=== PATIENT | female | born 1980 | race American Indian/Alaskan Native ===

== ENCOUNTER 2020-04-27 03:23 | Inpatient (IN) | payer OTHER ==
[2020-04-27 04:20] LABS: Basophils # (Auto) 0.1 K/mm3 (0.0-0.1); Basophils % (Auto) 0.9 % (0.0-1.8); Eosinophils # (Auto) 0.1 K/mm3 (0.0-0.4); Hematocrit 31.7 % (30.3-42.9); Hemoglobin 10.1 gm/dl (10.1-14.3); Lymphocytes # (Auto) 3.1 K/mm3 (1.2-5.4); Lymphocytes % (Auto) 30.1 % (13.4-35.0); Mean Corpuscular HGB Conc 32 % (30-34); Mean Corpuscular Volume 83 fl (79-97); Monocytes # (Auto) 0.4 K/mm3 (0.0-0.8); Monocytes % (Auto) 4.2 % (0.0-7.3); Platelet Count 324 K/mm3 (140-440); Red Blood Count 3.82 M/mm3 (3.65-5.03); Red Cell Distribution Width 16.6 % (13.2-15.2)
[2020-04-27 04:46] LABS: Alanine Aminotransferase 8 units/L (7-56); Albumin 3.7 g/dL (3.9-5); BUN/Creatinine Ratio 16; Blood Urea Nitrogen 13 mg/dL (7-17); Calcium 8.8 mg/dL (8.4-10.2); Hemolysis Index 14
[2020-04-27] MEDS ORDERED: SODIUM CHLORIDE 0.9% 1000 ML 1,000 ML IV ONE (04:54)
[2020-04-27] MEDS ORDERED: MORPHINE 4 MG/1 ML INJ IV ONE ×3 (05:07→05:50)
[2020-04-27] MEDS ORDERED: ONDANSETRON 4 MG/2 ML INJ IV ONE (05:07)
--- NOTE | 2020-04-27 05:11 | Ultrasound Report ---
ULTRASOUND OBSTETRIC INDICATION / CLINICAL INFORMATION: pelvic pain. TECHNIQUE: Transabdominal and Transvaginal. COMPARISON: None available. FINDINGS: There is a left adnexal ectopic that appears to be in the fallopian tube between the left o vary and uterus. There is a pole with crown-rump length of 0.61 cm and heart rate of 1 23 bpm. There is no free fluid. The uterus appears unremarkable. IMPRESSION: Ectopic in the left adnexal region, likely in the left fallopian tube. No free fluid. Signer Name: Christiano Salas MD Signed: 04/27/2020 5:06 AM Workstation Name: [id number]
--- NOTE | 2020-04-27 05:37 | Emergency Department Report ---
ED Female HPI - General Chief complaint: Abdominal Pain Stated complaint: ABD PAIN Time Seen by Provider: 04/27/20 04:53 Source: patient, EMS Mode of arrival: Wheelchair Limitations: No Limitations - History of Present Illness Initial comments: Chief complaint: Lower abdominal pain pelvic pain HPI: This is a 39-year-old female without significant past medical history who presents with severe lower abdominal pain after intercourse. Sharp 10 out of 10 left pelvic left lower quadrant pain without radiation. Patient estimates that she is approximately 7 weeks . She has yet to establish care. She receives her medical care through [facility]. She arrived via EMS. She recently discovered she likely has scar tissue in the fallopian tube during recent fertility evaluation. She did not require in vitro fertilization. No history of surgeries. No history of abortions or miscarriages. This is patient's fourth . She has had 3 vaginal deliveries. MD Complaint: pelvic pain, other (Left lower abdominal pain pelvic pain) -: Sudden, This morning Severity: severe Severity scale (0 -10): 10 Quality: sharp Consistency: constant Improves with: none Worsens with: intercourse Are you Now?: Yes Associated Symptoms: abdominal pain - Related Data Allergies Allergy/AdvReac Type Severity Reaction Status Date / Time Penicillins Allergy Unknown Verified 04/27/20 03:32 ED Review of Systems ROS: Stated complaint: ABD PAIN Other details as noted in HPI Comment: All other systems reviewed and negative Constitutional: denies: fever, malaise Respiratory: denies: cough, shortness of breath Gastrointestinal: abdominal pain. denies: nausea, vomiting Genitourinary: denies: urgency, dysuria, frequency, hematuria, abnormal menses ED Past Medical Hx - Past Medical History Previous Medical History?: No - Surgical History Past Surgical History?: No ED Physical Exam - General Limitations: No Limitations General appearance: alert, other (Appears uncomfortable nontoxic) - Head Head exam: Present: atraumatic, normocephalic - Eye Eye exam: Present: normal appearance - ENT ENT exam: Present: mucous membranes moist - Neck Neck exam: Present: normal inspection, full ROM - Respiratory Respiratory exam: Present: normal lung sounds bilaterally. Absent: respiratory distress, wheezes, rales, rhonchi - Cardiovascular Cardiovascular Exam: Present: regular rate, normal rhythm, normal heart sounds. Absent: systolic murmur, diastolic murmur, rubs, gallop - GI/Abdominal GI/Abdominal exam: Present: soft, normal bowel sounds. Absent: distended, tenderness, guarding, rebound - Extremities Exam Extremities exam: Present: normal inspection - Neurological Exam Neurological exam: Present: alert, oriented X3 - Psychiatric Psychiatric exam: Present: normal affect, normal mood - Skin Skin exam: Present: warm, dry, intact, normal color. Absent: rash ED Course Vital Signs 04/27/20 04/27/20 04/27/20 03:30 04:14 04:53 Temperature 98.0 F Pulse Rate 93 H 105 H 103 H Respiratory 18 21 23 Rate Blood Pressure 131/105 101/64 O2 Sat by Pulse 98 99 100 Oximetry 04/27/20 05:01 Temperature Pulse Rate 110 H Respiratory 19 Rate Blood Pressure 101/64 O2 Sat by Pulse 100 Oximetry ED Medical Decision Making - Lab Data Result diagrams: 04/27/20 04:09 04/27/20 04:09 Laboratory Results - last 24 hr 04/27/20 04/27/20 04/27/20 04:09 04:09 04:09 WBC 10.2 RBC 3.82 Hgb 10.1 Hct 31.7 MCV 83 MCH 26 L MCHC 32 RDW 16.6 H Plt Count 324 Lymph % (Auto) 30.1 [place] % (Auto) 4.2 Eos % (Auto) 1.0 Baso % (Auto) 0.9 Lymph # (Auto) 3.1 [place] # (Auto) 0.4 Eos # (Auto) 0.1 Baso # (Auto) 0.1 Seg Neutrophils % 63.8 Seg Neutrophils # 6.5 Sodium 138 Potassium 3.5 L Chloride 102.1 Carbon Dioxide 19 L Anion Gap 20 BUN 13 Creatinine 0.8 Estimated GFR > 60 BUN/Creatinine Ratio 16 Glucose 165 H Calcium 8.8 Total Bilirubin < 0.20 AST 12 ALT 8 Alkaline Phosphatase 59 Total Protein 6.7 Albumin 3.7 L Albumin/Globulin Ratio 1.2 Lipase 26 HCG, Quant 86744 H - Radiology Data Radiology results: report reviewed, image reviewed ULTRASOUND OBSTETRIC INDICATION / CLINICAL INFORMATION: pelvic pain. TECHNIQUE: Transabdominal and Transvaginal. COMPARISON: None available. FINDINGS: There is a left adnexal ectopic that appears to be in the fallopian tube between the left ovary and uterus. There is a pole with crown-rump length of 0.61 cm and heart rate of 1 23 bpm. There is no free fluid. The uterus appears unremarkable. IMPRESSION: Ectopic in the left adnexal region, likely in the left fallopian tube. No free fluid. - Medical Decision Making This is a 39-year-old female who is approximately 7 weeks presents with severe left lower quadrant, left pelvic pain. MET upon arrival I ordered transvaginal ultrasound to rule out ectopic . Upon return to the emergency department from radiology suite, electro optics engineer informing that patient had live ectopic. I immediately reviewed the images. I spoke with [facility] predatory animal hunter Dr. Sahu who recommended that patient receives definitive treatment at our facility. I spoke with chemical weigher for Dr. Benjamin. She arranged for communication with Dr. Benjamin. Dr. Benjamin spoke to me personally. He will evaluate the patient [id number] in order to determine best plan of care. He anticipates surgical intervention. Patient required multiple doses of IV analgesia for severe 10 on 10 pain. H&H within normal limits. No free fluid on ultrasound. ABO type ordered. PT PTT ordered in anticipation of surgical intervention. I have informed patient that she is n.p.o. status. IV fluid initiated in the emergency department. Clinical impression: Ectopic Disposition to be determined by predatory animal hunter Dr. Benjamin Critical Care Time: Yes Critical care time in (mins) excluding proc time.: 40 Critical care attestation.: If time is entered above; I have spent that time in minutes in the direct care of this critically ill patient, excluding procedure time. 40 minutes of critical care time excluding procedures were used in the care of the patient. I came immediately to the bedside upon patient's arrival. I obtained history from EMS at the bedside. I discussed treatment plan with the nursing team members. I reviewed electronic record. I kept the family members informed. I discussed treatment options and plan of care with fianc and patient at the bedside. Patient required multiple interventions and reassessments. I spoke with multiple consultants regarding patient's care. ED Disposition Clinical Impression: Ectopic Disposition: DC-09 OP ADMIT IP TO THIS HOSP Is pt being admited?: Yes Does the pt Need Aspirin: No Condition: Stable
[2020-04-27 06:06] LABS: INR 0.93 (0.87-1.13)
[2020-04-27 06:08] LABS: Partial Thromboplastin Time 23.3 Sec. (24.2-36.6)
[2020-04-27] MEDS ORDERED: KETOROLAC 30 MG/1 ML INJ IV PRN (06:55)
[2020-04-27] MEDS ORDERED: KETOROLAC 30 MG/1 ML INJ IM NR (06:56)
--- NOTE | 2020-04-27 06:59 | History and Physical Report ---
History of Present Illness Date of examination: 04/27/20 Chief complaint: Pelvic pain History of present illness: This is a 39-year-old black female para 3-0-0-3 whose last menstrual period was March 08, 2020 presents to emergency room with left lower quadrant pain after intercourse patient denies any vaginal bleeding and work-up in emergency room has shown her to have an unruptured left ectopic . Patient states she discovered positive test approximately 10 days ago. Patient significant other states that they have been undergoing infertility evaluation and had discovered that there was a blockage in the left tube. Patient says the plan was to "have that tube cleaned out" and proceed with intrauterine insemination. Patient states that the pain has improved since receiving pain medicine emergency room. Past History Past Medical History: No medical history Past Surgical History: No surgical history Medications and Allergies Allergies Allergy/AdvReac Type Severity Reaction Status Date / Time Penicillins Allergy Unknown Verified 04/27/20 03:32 Active Meds: Active Medications Ketorolac Tromethamine (Toradol) 30 mg IV Q6H PRN PRN Reason: Pain , Severe (7-10) Stop: 05/02/20 06:54 Ketorolac Tromethamine (Toradol) 30 mg IM ONCE ONE Stop: 04/27/20 06:57 Review of Systems Ears, nose, mouth and throat: deferred Breasts: deferred Cardiovascular: no chest pain Respiratory: no cough, no cough with sputum Gastrointestinal: nausea Genitourinary Female: pelvic pain Rectal: no pain Exam - Constitutional Vitals: Temp Pulse Resp BP Pulse Ox 98.0 F 110 H 19 101/64 100 04/27/20 03:30 04/27/20 05:01 04/27/20 05:01 04/27/20 05:01 04/27/20 05:01 General appearance: Present: mild distress, other (Patient is slightly somnolent from pain medicine but answers questions appropriately) - Respiratory Respiratory effort: normal - Cardiovascular Rhythm: regular - Extremities Extremities: no ischemia - Abdominal General gastrointestinal: Present: soft, tender Localized gastrointestinal: tender: LLQ, guarding: LLQ Female genitourinary: Present: deferred - Rectal Rectal Exam: deferred - Integumentary Integumentary: Present: clear, warm, dry - Psychiatric Psychiatric: appropriate mood/affect Results - Labs CBC & Chem 7: 04/27/20 04:09 04/27/20 04:09 Labs: Abnormal lab results 04/27/20 04/27/20 04/27/20 Range/Units 04:09 04:09 04:09 MCH 26 L (28-32) pg RDW 16.6 H (13.2-15.2) % APTT (24.2-36.6) Sec. Potassium 3.5 L (3.6-5.0) mmol/L Carbon Dioxide 19 L (22-30) mmol/L Glucose 165 H (65-100) mg/dL Albumin 3.7 L (3.9-5) g/dL HCG, Quant 30995 H (0-4) mIU/mL 04/27/20 Range/Units 05:44 MCH (28-32) pg RDW (13.2-15.2) % APTT 23.3 L (24.2-36.6) Sec. Potassium (3.6-5.0) mmol/L Carbon Dioxide (22-30) mmol/L Glucose (65-100) mg/dL Albumin (3.9-5) g/dL HCG, Quant (0-4) mIU/mL Assessment and Plan - Patient Problems (1) Ectopic Current Visit: Yes Status: Acute Qualifiers: Location of ectopic : tubal Intrauterine status: without intrauterine Laterality: left Qualified Code(s): O00.102 - Left tubal without intrauterine Plan to address problem: Diagnoses discussed with the patient and her significant other. Discussed the finding of ultrasound. Discussed the risks of tubal rupture and hemorrhage. Discussed both surgical treatment operative laparoscopy versus methotrexate. With operative laparoscopy discussed and explained the procedure discussed salpingostomy with possible salpingectomy and evaluation of her contralateral tube. Discussed the risks of the surgery including bleeding, infection, possible damage to bowel, bladder or ureter an outpatient nature of the procedure. Also discussed treatment with methotrexate that is a chemotherapy drug including side effects of nausea, vomiting and GI system irritation also the possibility of failure of the methotrexate treatment and possible need for operative intervention. Patient and significant other are concerned about the possibility of losing her left tube and desires to have the least invasive proce dure done due to their plans with their infertility work-up. Therefore desire to attempt treatment with methotrexate. We will admit the patient started [facility] track state treatment will do serial exams to evaluate patient's condition and also to rule out possible rupture. Will perform serial blood counts to monitor. We will have the patient sign permit for surgery if emergent surgery is needed. Answered all questions from both the patient and her significant other and they desire to start with methotrexate.
[2020-04-27] MEDS ORDERED: ACETAMINOPHEN 325 MG TAB PO PRN ×2 (11:00→20:26)
[2020-04-27] MEDS ORDERED: ONDANSETRON 4 MG/2 ML INJ IV PRN ×2 (11:00→16:13)
[2020-04-27] MEDS ORDERED: oxyCODONE /ACETAMINOPHEN 5-325MG TAB PO PRN (12:17)
[2020-04-27] MEDS: D5W/0.45% NACL 1,000 ML IV SCH ×2 (12:48→23:41)
--- NOTE | 2020-04-27 15:27 | Event Note ---
Date: 04/27/20 Provider at bedside due to pt c/o pain and having to have percocet for pain after having the toradol earlier. I d/w pt and s/o that the increase in pain could be an indication of rupture which is why at this time her pain meds are limited to the toradol so that if she is requiring more meds the provider would again suggest removal as stated before. I explained to both that while the pregnacy is no ruptured at this time the risk of rupture is high and that if she does rupture, this would require emergency surgery so as to save her life and p revent her from hemorraging to . I states that the gestational age and the presence of FCA are relative contraindications to using the MTX and that this may also require several treatments for complete resolutions and that close follow is needed until hormone levels are zero. I stressed that usually this is treated via sx if the patient is having significant pain as she is having whether ruptures or not. I also d/w pt that she will need to have removal of the tube should she have surgery as the tube would likely be entirely encompassed with the ectopic. I d/w both that she likely with have scarring and more nonfuction of the tube and if she had again with same tube in place she is at higher risk for repeat ectopic and that the h/o of ectopic even with tube removed also placed her at higher risk for repeat ectopic compared to the a woman who has never had an ectopic . I was then asked to speak to a woman who identified herself as the mother of the s/o and with pt permission discussed her status and plan of care at this time and all of her questions were addressed and answered. I again stressed that the MXT is used to treat ectopic pregnancies with certain criteria and the ectopic she has does not meet some of those criteria and could be considered outside the standard of care. However, she has the autonomy as a patient to refuse surgical treatment. Approximated 15 minutes were spent at the bedside. Close observation for now. Pt still declines surgical treatment. RN made aware of plan of care and to call provider for any changes in pt status.
--- NOTE | 2020-04-27 15:54 | Event Note ---
Date: 04/27/20 Called by RN. Pt now desires surgical treatment of the ectopic. As was explained previously when I was at the bedside the planned procedure would be a salpingectomy and any other indicated procedures. All risk, benefits, and alternatives were discussed both by myselft and Dr. Benjamin(when initial consent was signed at time of admission). OR notified and pt being posted. Advised that pt seems stable at this time but would need to have sx as soon as time and staffing permits.
[2020-04-27] MEDS ORDERED: GENTAMICIN/NS 120MG/100ML 120 MG/100 ML BAG IV SCH (16:00)
[2020-04-27] MEDS ORDERED: GENTAMICIN/NS 80 MG/100 ML 100 ML IV SCH (16:00)
[2020-04-27] MEDS ORDERED: HYDROmorphone 1 MG/1 ML INJ IV PRN (16:13)
[2020-04-27] MEDS ORDERED: propofoL 200 MG/20 ML VIAL IV ONE (16:27)
[2020-04-27] MEDS ORDERED: ROCURONIUM 50 MG/5 ML INJ IV ONE (16:30)
[2020-04-27] MEDS ORDERED: LIDOCAINE MPF (2%) 20 MG/1 ML VIAL 5 ML ONE (16:30)
[2020-04-27] MEDS ORDERED: BUPIVACAINE/PF (0.5%) 5 MG/1 ML 30 ML VIAL INFILTRATI ONE ×2 (16:44→18:10)
[2020-04-27] MEDS ORDERED: SODIUM CHLORIDE 0.9% 1000 ML 1,000 ML ONE ×3 (17:25→19:47)
[2020-04-27] MEDS ORDERED: SODIUM CHLORIDE 0.9% IRR 1,500 ML BOTTLE IR ONE (18:10)
[2020-04-27] MEDS ORDERED: SODIUM CHLORIDE 0.9% IRRIG SOLN 2000 ML IR ONE (18:11)
--- NOTE | 2020-04-27 18:31 | Anesthesia Consultation ---
Anesthesia Consult and Med Hx Date of service: 04/27/20 - Airway Anesthetic Teeth Evaluation: Good ROM Head & Neck: Adequate Mental/Hyoid Distance: Adequate Mallampati Class: Class III Intubation Access Assessment: Possibly Difficult - Pulmonary Exam CTA: Yes - Cardiac Exam Cardiac Exam: RRR - Pre-Operative Health Status ASA Pre-Surgery Classification: ASA2, Emergency Proposed Anesthetic Plan: General - Pulmonary Hx Respiratory Symptoms: No - Cardiovascular System Hx Hypertension: No Hx Heart Attack/AMI: No Hx Percutaneous Transluminal Coronary Angioplasty (PTCA): No - Central Nervous System CVA: No - Endocrine Hx Renal Disease: No Hx Liver Disease: No Hx Insulin Dependent Diabetes: No Hx Non-Insulin Dependent Diabetes: No Hx Thyroid Disease: No - Hematic Hx Anemia: Yes - Other Systems Hx Obesity: Yes (BMI 37) - Additional Comments Anesthesia Medical History Comments: No hx anesthetic complications. Emergent laparoscopy for ectopic . Type and screen current. pRBCs ordered on standby.
--- NOTE | 2020-04-27 18:31 | Anesthesia Day of Surgery ---
Anesthesia Day of Surgery - Day of Surgery Patient Examined: Yes Patient H&P Reviewed: Yes Patient is NPO: Yes
[2020-04-27] MEDS ORDERED: ONDANSETRON 4 MG/2 ML INJ ONE (19:47)
[2020-04-27] MEDS ORDERED: KETOROLAC 30 MG/1 ML INJ ONE (19:47)
[2020-04-27] MEDS ORDERED: NEOSTIGMINE 10MG/10 ML INJ MDV ONE (19:51)
[2020-04-27] MEDS ORDERED: GLYCOPYRROLATE 0.4 MG/2 ML INJ ONE (19:51)
--- NOTE | 2020-04-27 20:24 | Operative Report ---
Operative Report Operative Report: Date of procedure: 04/27/2020 Pre-operative diagnosis: Left ectopic at approximately 6 weeks and 3 days Suspected ruptured ectopic Post-operative diagnosis: Same plus ovarian cyst Procedure name(s): Diagnostic laparoscopy Operative laparoscopy Evacuation of hemoperitoneum Lysis of adhesions Left salpingectomy Left cystectomy Exam and anesthesia Surgeon: Dr. Bunch Welt Maker: Dr. Nivia Zendejas Anesthesia: General endotracheal anesthesia EBL: 1200 mL Urine output: 300 mL of clear urine out at end of procedure Fluids: 2600 mL Findings: Approximately 800 mL of hemoperitoneum noted in the pelvis. Dense adhesions of the left adnexa including the left tube and ovary What appeared to be ruptured from the fimbriated edge of the left fallopian tube What appeared to be normal right fallopian tube with fimbriated edge appearing to be slightly blunted Indications: Patient presented to the emergency room diagnosed with left ectopic with cardiac TV noted at approximately 6 weeks and 3 days. It was discussed with the patient surgical options patient declined at that time and desired to get medical therapy with methotrexate. After undergoing methotrexate treatment patient continued to have abdominal pain that worsened. Again was discussed with the patient surgical options patient now wanted surgical treatment for the ectopic . All risks benefits and alternatives were discussed with the patient. Consents were signed and placed on the chart. Procedure: Patient was taken to the operating room where she was prepped and draped in sterile fashion after she was placed under general endotracheal anesthesia. Legs were placed in Nithin stirrups and patient was in dorsal lithotomy position. Hoyt catheter was placed and patient underwent straight catheterization which approximately 50 cc of urine was removed from the bladder. Sterile speculum was placed inside the vagina. The anterior lip of the cervix was grasped and the uterus was sounded to approximately 8 cm. The cervix was then dilated to allow placement of the humi uterine manipulator. Attention was then turned to the abdomen in which an incision was made above the umbilicus and placement of the 5 mm trocar with direct visualization was done. An 8 mm and 5 mm trocar was then placed in the abdomen under direct visualization after insufflation had been done. Above-stated hemoperitoneum was noted and irrigation and evacuation was done at this time. Attention was turned to the right fallopian tube with above-stated findings. Attention was turned to the right adnexa in which there were adhesions of the left fallopian tube to the left ovary that were lysed as well as adhesions of the left ovary to the posterior portion of the uterus which were lysed. Excellent hemostasis was noted. Attention was turned to the fallopian tube which was elevated cauterized and transected and removed in its entirety. Patient was also noted to have a left ovarian cyst that was also transected after being cauterized and removed. All specimens went to pathology. The abdomen was copiously irrigated. Interceed was placed along the left ovary. Excellent hemostasis was noted. Patient was taken to recovery room awake in stable condition. Patient was given clindamycin prior to the onset of procedure.
[2020-04-27 20:50] LABS: Hematocrit 26.6 % (30.3-42.9); Hemoglobin 8.7 gm/dl (10.1-14.3)
[2020-04-27] MEDS: GENTAMICIN/NS 80 MG/100 ML 100 ML IV SCH (23:45)
[2020-04-28] MEDS: HYDROcodone/ACETAMINOPHEN 5-325 MG TAB PO PRN ×4 (01:02→20:09)
[2020-04-28] MEDS: CLINDAMYCIN 600 MG/50 mL 600 MG/50 ML BAG IV SCH ×2 (01:07→10:31)
--- NOTE | 2020-04-28 08:30 | Post Anesthesia Evaluation ---
- Post Anesthesia Evaluation Patient Participated: Yes Airway Patent: Yes Stable Respiratory Function: Yes Nausea/Vomiting: No Temp > 96.8F: Yes Pain Manageable: Yes Adequeate Hydration: Yes Anesthesia Complications: No Other Comments: Lat entry for anesthetic 04/27/20
[2020-04-28] MEDS: GENTAMICIN/NS 80 MG/100 ML 100 ML IV SCH (08:59)
[2020-04-28 09:58] LABS: Basophils # (Auto) 0.1 K/mm3 (0.0-0.1); Basophils % (Auto) 0.6 % (0.0-1.8); Eosinophils % (Auto) 0.3 % (0.0-4.3); Hematocrit 21.7 % (30.3-42.9); Hemoglobin 7.1 gm/dl (10.1-14.3); Lymphocytes # (Auto) 2.2 K/mm3 (1.2-5.4); Lymphocytes % (Auto) 27.7 % (13.4-35.0); Mean Corpuscular HGB Conc 33 % (30-34); Mean Corpuscular Volume 81 fl (79-97); Monocytes # (Auto) 0.6 K/mm3 (0.0-0.8); Monocytes % (Auto) 7.7 % (0.0-7.3); Platelet Count 229 K/mm3 (140-440); Red Blood Count 2.69 M/mm3 (3.65-5.03); Red Cell Distribution Width 16.6 % (13.2-15.2)
[2020-04-28] MEDS: D5W/0.45% NACL 1,000 ML IV SCH (10:31)
--- NOTE | 2020-04-28 12:59 | Progress Note ---
Assessment and Plan - Patient Problems (1) Hx of unilateral salpingectomy Current Visit: Yes Status: Acute Plan to address problem: -routine post op care -d/c solitario -cont regular diet -anticipate d/c this pm if h/h stable on in the am pending pt progress -pt status updated with provider space controller Dr. Benjamin. (2) Ectopic Current Visit: Yes Status: Acute Qualifiers: Location of ectopic : tubal Intrauterine status: without intrauterine Laterality: left Qualified Code(s): O00.102 - Left tubal without intrauterine (3) Anemia due to acute blood loss Current Visit: Yes Status: Acute Plan to address problem: -monitor closely -serial h/h -d/c home on po iron Subjective - Subjective Date of service: 04/28/20 Principal diagnosis: POD #1 sp LS and Left cystectomy for ruputed ectopic 2) anemia Interval history: Pt doing well tolerating regular diet this am. Advised that we will d/c cath so that she can ambulate. Pt also advised of surgery findings and given copy of pictures. I d/w anemia and precautions were given and she was advised of possible need for transfusion pending findings of serial labs. I d/w that as per her vital signs and current labs she seems to be stable and not bleeding internally. She expressed understanding. I also d/w that the goal would be for her to be d/c home this pm and defined in the am if she remains afebrile and vitals remain stable she. Patient reports: pain well controlled Objective - Vital Signs Latest vital signs: Vital Signs Temp Pulse Resp BP BP Pulse Ox 04/28/20 08:14 98.6 F 96 H 18 96/56 98 04/28/20 04:41 98.6 F 97 H 18 108/60 98 04/28/20 00:19 98.2 F 109 H 20 128/88 98 04/27/20 21:15 99 F 104 H 14 139/79 94 04/27/20 20:50 102 H 20 129/47 100 04/27/20 20:35 9821 F H 101 H 18 121/72 100 04/27/20 20:20 109 H 20 112/66 100 04/27/20 20:15 111 H 16 121/59 100 04/27/20 20:10 112 H 17 115/56 100 04/27/20 20:05 97.7 F 103 H 16 122/46 100 04/27/20 15:05 98.2 F 90 20 115/65 Intake and Output 04/27/20 04/28/20 04/28/20 22:59 06:59 14:59 Intake Total 9116 438 3868 Output Total 1050 1900 Balance 50 -1740 1240 Intake: IV 7653 908 7252 CLEOCIN 600 MG/50 mL 600 50 mg In 50 ml @ 100 mls/hr IV Q8H MARCELINO Rx#:[id number] D5/0.45NS 1,000 ml @ 125 1000 1000 mls/hr IV DIRECT MARCELINO Rx#:[id number] Gentamicin/Ns 80 mg/100 100 ml 100 ml @ 200 mls/hr IV Q8H MARCELINO Rx#:[id number] Oral 0 240 Intake, Free Water 10 Output: Urine 1050 1900 Indwelling Catheter 1900 Void 600 Other: Total, Intake Amount 0 240 Total, Output Amount 600 600 Voiding Method Indwelling Catheter Indwelling Catheter # Voids Void 1 - Exam Cardiovascular: Present: Normal S1, Normal S2 Abdomen: Present: normal appearance, soft. Absent: distention, tenderness, guarding Incision: Present: normal, dry, intact - Labs Labs: Abnormal lab results 04/27/20 04/27/20 04/28/20 Range/Units 21:12 Unknown 08:47 RBC 2.69 L (3.65-5.03) M/mm3 Hgb 8.7 L 7.1 L (10.1-14.3) gm/dl Hct 26.6 L 21.7 L (30.3-42.9) % MCH 26 L (28-32) pg RDW 16.6 H (13.2-15.2) % [place] % (Auto) 7.7 H (0.0-7.3) % POC Glucose 113 H (70-105)
[2020-04-28 16:29] LABS: Hematocrit 23.9 % (30.3-42.9); Hemoglobin 7.7 gm/dl (10.1-14.3)
--- NOTE | 2020-04-28 18:13 | Event Note ---
Date: 04/28/20 Patient seen in the bed eating dinner. Denies any nausea or vomiting. Patient does complain of abdominal pain consistent with postop state. Patient still has Hoyt in place. Patient states she is anxious about moving around since she has had surgery. Discussed hemoglobin and hematocrit results drawn stable since this a.m. Patient denies any orthostatic symptoms. We will remove Hoyt catheter ambulate and evaluate for possible discharge this evening.
[2020-04-28] MEDS ORDERED: PETROLATUM,WHITE 30 GM OINT TP PRN (20:33)
[2020-04-29] MEDS: HYDROcodone/ACETAMINOPHEN 5-325 MG TAB PO PRN ×2 (04:25→08:38)
--- NOTE | 2020-04-29 07:46 | Discharge Summary ---
Providers - Providers Date of Admission: 04/27/20 09:24 Date of discharge: 04/29/20 Attending physician: BREA REGAN [facility] Condition: Good Procedures: Diagnostic laparoscopy Operative laparoscopy Evacuation of hemoperitoneum Lysis of adhesions Left salpingectomy Left cystectomy Exam and anesthesia Hospital course: This is a 39-year-old female who presented to the emergency room on 04/27/2020 with complaint of abdominal pain. She was found to have a left ectopic pregnanc y. Patient declined surgical intervention and admitted for observation and methotrexate therapy. Throughout the day her pain increased requiring increased doses of narcotic medication. After her evaluation with Dr. Bunch, patient then agreed to proceed with surgery. See Dr. Bunch's operative note. Patient's postoperative course was uncomplicated. Her hemoglobin remained stable. She was ambulating well and tolerating solid regular diet. She desires discharge home today. Disposition: TO HOME OR SELFCARE - Discharge Diagnoses (1) Anemia due to acute blood loss Status: Acute (2) Ectopic Status: Acute Qualifiers: Location of ectopic : tubal Intrauterine status: without intrauterine Laterality: left Qualified Code(s): O00.102 - Left tubal without intrauterine (3) Hx of unilateral salpingectomy Status: Acute Core Measure Documentation - Palliative Care Palliative Care/ Comfort Measures: Not Applicable - Core Measures Any of the following diagnoses?: none Exam - Constitutional Vitals: Temp Pulse Resp BP Pulse Ox 98.2 F 98 H 20 103/62 99 04/29/20 00:16 04/29/20 00:16 04/29/20 00:16 04/29/20 00:16 04/29/20 00:16 General appearance: Present: no acute distress - Respiratory Respiratory effort: normal Respiratory: bilateral: CTA - Extremities Extremities: no ischemia, No edema - Abdominal General gastrointestinal: Present: soft, normal bowel sounds - Psychiatric Psychiatric: appropriate mood/affect, intact judgment & insight, memory intact, cooperative Plan Activity: other (No sex. No driving. Ambulate approximately 1 mile on your property daily. Use your incentive spirometer every hour while awake. Void every hour while awake.) Weight Bearing Status: Full Weight Bearing Diet: regular (Eat small meals frequently. Avoid spicy, fatty, high salt content foods. Drink approximately 100 ounces of water a day.) Wound: open to air, keep clean and dry Special Instructions: no heavy lifting (Greater than 25 pound.) Additional Instructions: Call your cardroom hand today to schedule postoperative follow-up if you are not going to follow-up in our office as recommended [facility]Primary Care Provider[facility] - 7 Days TAYLOR BUNCH MD [Staff Physician] - 7 Days Prescriptions: Docusate Sodium [Colace] 100 mg PO BID PRN #60 capsule PRN Reason: Constipation Ferrous Sulfate [Feosol 325 MG tab] 325 mg PO QDAY #60 tablet Ibuprofen [Motrin 800 MG tab] 800 mg PO Q8HR PRN #30 tablet PRN Reason: Pain, Moderate (4-6) oxyCODONE /ACETAMINOPHEN [Percocet 5/325] 1 tab PO Q4HR #30 tab
[2020-04-29] MEDS ORDERED: ACETAMINOPHEN 325 MG TAB PO PRN (07:59)
[2020-04-29 10:46] VITALS: BP 113/66
== END 2020-04-29 11:51 | disposition home or self-care (01) | DRG 818 ==
LOC: ED 03:23 → OB 09:24
PROVIDERS: ADMIT Obstetrics & Gynecology; ATTEND Obstetrics & Gynecology
PROC: 0UB64ZZ Excision of Left Fallopian Tube, Percutaneous Endoscopic Approach (ICD-10-PCS; principal; 2020-04-27)
PROC: 10T24ZZ Resection of Products of Conception, Ectopic, Percutaneous Endoscopic Approach (ICD-10-PCS; 2020-04-27)
PROC: 0UB14ZZ Excision of Left Ovary, Percutaneous Endoscopic Approach (ICD-10-PCS; 2020-04-27)
DX: O00.102 Left tubal pregnancy without intrauterine pregnancy (principal); D62 Acute posthemorrhagic anemia; N83.202 Unspecified ovarian cyst, left side
CPT/HCPCS: 36415; 76801; 76817; 80053; 82962; 83690; 84702; 85014; 85018; 85025; 85610; 85730; 86900; 86901; 88302; 88305; 96372; 96374; 96375; G0378; A4217; A6250; J1170; J1580; J1885; J2270; J2405; J2704; J2710; J7030; J9260

== ENCOUNTER 2021-04-19 18:40 | Emergency (ER) | payer SELFPAY ==
[2021-04-19] MEDS ORDERED: IBUPROFEN 800 MG TAB PO ONE (19:36)
[2021-04-19 20:00] LABS: Hematocrit 37.6 % (30.3-42.9); Hemoglobin 12.6 gm/dl (10.1-14.3); Mean Corpuscular HGB Conc 34 % (30-34); Mean Corpuscular Volume 88 fl (79-97); Platelet Count 259 K/mm3 (140-440); Red Blood Count 4.28 M/mm3 (3.65-5.03); Red Cell Distribution Width 14.3 % (13.2-15.2)
[2021-04-19 20:26] LABS: Alanine Aminotransferase 11 units/L (7-56); Blood Urea Nitrogen 10 mg/dL (7-17); Calcium 8.7 mg/dL (8.4-10.2); Hemolysis Index 6
[2021-04-19 20:27] LABS: BUN/Creatinine Ratio 17
--- NOTE | 2021-04-19 20:36 | XRay Report ---
CHEST 2 VIEWS INDICATION / CLINICAL INFORMATION: chest pain. COMPARISON: None available. FINDINGS: SUPPORT DEVICES: None. HEART / MEDIASTINUM: No significant abnormality. LUNGS / PLEURA: No significant pulmonary or pleural abnormality. No pneumothorax. ADDITIONAL FINDINGS: No significant additional findings. IMPRESSION: 1. No acute findings. Signer Name: Kvng Alvarez DO Signed: 04/19/2021 8:32 PM Workstation Name: [id number]
--- NOTE | 2021-04-19 20:37 | XRay Report ---
CERVICAL SPINE 3 VIEWS INDICATION / CLINICAL INFORMATION: neck pain. COMPARISON: None available. FINDINGS: VERTEBRAE: No acute fracture. No significant malalignment. DISC SPACES / FACET JOINTS:No significant abnormality. PARASPINAL SOFT TISSUES:No significant abnormality. ADDITIONAL FINDINGS: None. Signer Name: Kvng Alvarez DO Signed: 04/19/2021 8:32 PM Workstation Name: [id number]
[2021-04-19] MEDS ORDERED: ONDANSETRON 4 MG/2 ML INJ IV ONE (21:36)
[2021-04-19] MEDS ORDERED: MORPHINE 4 MG/1 ML INJ IV ONE (21:36)
[2021-04-19 21:48] LABS: Total Cells Counted 100
[2021-04-19 21:49] LABS: Platelet Estimate Consistent w Auto; RBC Morphology Normal
--- NOTE | 2021-04-19 21:50 | Emergency Department Report ---
ED Chest Pain HPI - General Chief Complaint: Chest Pain Stated Complaint: CHEST PAIN BACK PAIN 2DAYS Time Seen by Provider: 04/19/21 21:30 Source: patient Mode of arrival: Ambulatory Limitations: No Limitations - History of Present Illness Initial Comments: Patient is 40 years old female stated that she did not have any past medical history. Patient presented to the ER complaining of left sided chest pain. Patient described her pain as sharp 8 out of 10 radiated to mid upper back. Patient stated that pain has been going on for 2 to 3 days. Patient denied any recent injury. Patient denied any shortness of breath. She also denied any fever or chills. No abdominal pain, nausea or vomiting. MD Complaint: chest pain -: Sudden Onset: during rest Pain Location: substernal Pain Radiation: back Severity scale (0 -10): 8 Quality: sharp, dull Consistency: constant - Related Data Previous Rx's Medication Instructions Recorded Last Taken Type Docusate Sodium [Colace] 100 mg PO BID PRN #60 capsule 04/27/20 Unknown Rx Ferrous Sulfate [Feosol 325 MG tab] 325 mg PO QDAY #60 tablet 04/27/20 Unknown Rx Ibuprofen [Motrin 800 MG tab] 800 mg PO Q8HR PRN #30 tablet 04/27/20 Unknown Rx oxyCODONE /ACETAMINOPHEN [Percocet 1 tab PO Q4HR #30 tab 04/27/20 Unknown Rx 5/325] Ondansetron [Zofran Odt] 4 mg PO Q8HR PRN #14 tab.rapdis 04/19/21 Unknown Rx amLODIPine [Norvasc] 5 mg PO DAILY #30 tab 04/19/21 Unknown Rx traMADoL [Ultram] 50 mg PO Q6HR PRN #14 tablet 04/19/21 Unknown Rx Allergies Allergy/AdvReac Type Severity Reaction Status Date / Time Penicillins Allergy Unknown Verified 04/27/20 03:32 Heart Score - HEART Score History: Moderately suspicious EKG: Normal Age: < 45 Risk factors: 1-2 risk factors Troponin: < normal limit HEART Score: 2 - EKG Read Time Time EKG Completed: 19:40 EKG Read Time: 19:45 - Critical Actions Critical Actions: 0-3 pts:0.9-1.7%risk of adverse cardiac event.Candidate for discharge ED Review of Systems ROS: Stated complaint: CHEST PAIN BACK PAIN 2DAYS Other details as noted in HPI Comment: All other systems reviewed and negative Constitutional: denies: chills, fever Cardiovascular: chest pain. denies: palpitations, dyspnea on exertion, orthopnea Gastrointestinal: denies: abdominal pain, nausea, vomiting, diarrhea, constipation, hematemesis, melena Musculoskeletal: back pain Neurological: denies: headache, weakness, numbness, paresthesias, confusion, abnormal gait ED Past Medical Hx - Past Medical History Previous Medical History?: No Hx Hypertension: No Hx Heart Attack/AMI: No Hx Liver Disease: No Hx Renal Disease: No Hx Seizures: No Hx Dementia: No Hx HIV: No - Surgical History Past Surgical History?: Yes Hx Open Heart Surgery: No Hx Cholecystectomy: No Hx Appendectomy: No Hx Breast Surgery: No Additional Surgical History: ectopic preg - Social History Smoking Status: Never Smoker - Medications Home Medications: Home Medications Medication Instructions Recorded Confirmed Last Taken Type Docusate Sodium [Colace] 100 mg PO BID PRN #60 capsule 04/27/20 Unknown Rx Ferrous Sulfate [Feosol 325 MG tab] 325 mg PO QDAY #60 tablet 04/27/20 Unknown Rx Ibuprofen [Motrin 800 MG tab] 800 mg PO Q8HR PRN #30 tablet 04/27/20 Unknown Rx oxyCODONE /ACETAMINOPHEN [Percocet 1 tab PO Q4HR #30 tab 04/27/20 Unknown Rx 5/325] Ondansetron [Zofran Odt] 4 mg PO Q8HR PRN #14 tab.rapdis 04/19/21 Unknown Rx amLODIPine [Norvasc] 5 mg PO DAILY #30 tab 04/19/21 Unknown Rx traMADoL [Ultram] 50 mg PO Q6HR PRN #14 tablet 04/19/21 Unknown Rx ED Physical Exam - General Limitations: No Limitations General appearance: alert, in no apparent distress - Head Head exam: Present: atraumatic, normocephalic, normal inspection - Eye Eye exam: Present: normal appearance - ENT ENT exam: Present: normal exam, normal orophraynx, mucous membranes moist - Neck Neck exam: Present: normal inspection, full ROM. Absent: tenderness, meningismus - Respiratory Respiratory exam: Present: normal lung sounds bilaterally. Absent: respiratory distress, wheezes, rales, rhonchi, chest wall tenderness - Cardiovascular Cardiovascular Exam: Present: regular rate, normal rhythm, normal heart sounds - GI/Abdominal GI/Abdominal exam: Present: soft, normal bowel sounds. Absent: distended, tenderness, guarding, rebound, rigid, organomegaly, mass, bruit, pulsatile mass, hernia - Extremities Exam Extremities exam: Present: normal inspection, full ROM, normal capillary refill. Absent: tenderness, pedal edema, joint swelling, calf tenderness - Back Exam Back exam: Present: normal inspection, full ROM. Absent: CVA tenderness (R), CVA tenderness (L) - Neurological Exam Neurological exam: Present: alert, oriented X3, CN II-XII intact, normal gait, reflexes normal. Absent: motor sensory deficit - Psychiatric Psychiatric exam: Present: normal mood - Skin Skin exam: Present: warm, intact, normal color ED Course Vital Signs 04/19/21 19:17 Temperature 98.4 F Pulse Rate 99 H Respiratory 18 Rate Blood Pressure 180/125 O2 Sat by Pulse 100 Oximetry ED Medical Decision Making - Lab Data Result diagrams: 04/19/21 19:44 04/19/21 19:44 - EKG Data -: EKG Interpreted by Ri EKG shows normal: sinus rhythm Rate: normal - EKG Data Interpretation: no acute changes - Radiology Data Radiology results: report reviewed - Medical Decision Making Patient is 40 years old female stated that she did not have any past medical history. Patient presented to the ER complaining of left sided chest pain. Patient described her pain as sharp 8 out of 10 radiated to mid upper back. Patient stated that pain has been going on for 2 to 3 days. Patient denied any recent injury. Patient denied any shortness of breath. She also denied any fever or chills. No abdominal pain, nausea or vomiting. EKG is unremarkable. Labs reviewed and is unremarkable including a negative troponin. CTA chest showed no evidence of pulmonary embolism or any other pathology. Patient symptom is most likely related to her malignant hypertension. I started patient on Norvasc 5 mg and advised to follow-up with her primary doctor in the next 2 to 3 days and to return to the ER if she develop any new symptoms. Critical care attestation.: If time is entered above; I have spent that time in minutes in the direct care of this critically ill patient, excluding procedure time. ED Disposition Clinical Impression: Acute chest pain, Malignant hypertension Disposition: HOME / SELF CARE / HOMELESS Is pt being admited?: No Condition: Stable Instructions: Nonspecific Chest Pain, Adult, Managing Your Hypertension, Chest Pain (ED), Hypertension (ED) Prescriptions: amLODIPine [Norvasc] 5 mg PO DAILY #30 tab traMADoL [Ultram] 50 mg PO Q6HR PRN #14 tablet PRN Reason: Pain Ondansetron [Zofran Odt] 4 mg PO Q8HR PRN #14 tab.rapdis PRN Reason: Nausea And Vomiting Referrals: [facility] [Provider Group] - 3-5 Days
[2021-04-19 22:10] VITALS: BP 180/125
--- NOTE | 2021-04-19 22:42 | Cat Scan Report ---
CTA CHEST WITH CONTRAST INDICATION / CLINICAL INFORMATION: CHEST PAIN WITH BACK PAIN. TECHNIQUE: Axial CT images were obtained through the chest after injection of 100 cc of Omnipaque 350 IV contrast. 3 plane MIP and/or 3D reconstructions were produced. All CT scans at this location are performed using CT dose reduction for ALARA by means of automated exposure control. COMPARISON: Same day chest radiograph FINDINGS: PULMONARY ARTERIES: No central or segmental pulmonary embolus. THORACIC AORTA: No significant abnormality. HEART: No significant abnormality. ADENOPATHY: No significant adenopathy. LUNGS/PLEURA: There is bibasilar volume loss, more pronounced in the left lung base. No acute airspac e or interstitial disease. No pleural effusion. No pneumothorax. ADDITIONAL FINDINGS: None. UPPER ABDOMEN: Cholelithiasis. No evidence of cholecystitis. No acute findings in the upper abdomen. SKELETAL STRUCTURES: No significant osseous abnormality. IMPRESSION: No acute findings in the chest. No evidence of pulmonary embolus. Signer Name: Kameron Sandhu MD Signed: 04/19/2021 10:38 PM Workstation Name: [id number]
--- NOTE | 2021-04-20 10:06 | Electrocardiograph Report ---
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
== END 2021-04-20 01:45 | disposition home or self-care (01) ==
LOC: ED 18:40
DX: R07.89 Other chest pain (principal); I10 Essential (primary) hypertension; Z88.0 Allergy status to penicillin; Z79.899 Other long term (current) drug therapy
CPT/HCPCS: 36415; 71046; 71275; 72040; 80053; 84484; 84703; 85007; 85025; 93005; 96374; 96375; 99284; J2270; J2405; Q9967

== ENCOUNTER 2021-04-27 22:56 | Emergency (ER) | payer SELFPAY ==
--- NOTE | 2021-04-27 23:45 | Emergency Department Report ---
ED Chest Pain HPI - General Chief Complaint: Chest Pain Stated Complaint: CHEST PAINS/HEADACHES/DIZZNESS Time Seen by Provider: 04/27/21 23:09 Source: patient Mode of arrival: Ambulatory Limitations: No Limitations - History of Present Illness Initial Comments: 40-year-old female, history of anxiety, presents to ED with complaint of chest pain x3 days. Patient states the pain is substernal, throbbing in nature, with associated palpitations. States pain is intermittent. Onset while at work. 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 Patient states she has been under a lot of stress recently and feels like her anxiety is causing this chest pain. She d enies any vomiting, diaphoresis, shortness of breath, leg pain or swelling. Patient denies any tobacco or drug use. Patient reports she has received both doses of the COVID-19 vaccine. Complaint: chest pain -: days(s) (2) Onset: during rest Pain Location: substernal Pain Radiation: none Severity: moderate Severity scale (0 -10): 6 Quality: other (Throbbing) Consistency: intermittent Improves With: nothing Worsens With: nothing re: denies: nausea, vomting, diaphoresis, dyspnea Other Symptoms: denies: cough, fever - Related Data Previous Rx's Medication Instructions Recorded Last Taken Type Docusate Sodium [Colace] 100 mg PO BID PRN #60 capsule 04/27/20 Unknown Rx Ferrous Sulfate [Feosol 325 MG tab] 325 mg PO QDAY #60 tablet 04/27/20 Unknown Rx Ibuprofen [Motrin 800 MG tab] 800 mg PO Q8HR PRN #30 tablet 04/27/20 Unknown Rx oxyCODONE /ACETAMINOPHEN [Percocet 1 tab PO Q4HR #30 tab 04/27/20 Unknown Rx 5/325] Ondansetron [Zofran Odt] 4 mg PO Q8HR PRN #14 tab.rapdis 04/19/21 Unknown Rx amLODIPine [Norvasc] 5 mg PO DAILY #30 tab 04/19/21 Unknown Rx traMADoL [Ultram] 50 mg PO Q6HR PRN #14 tablet 04/19/21 Unknown Rx Allergies Allergy/AdvReac Type Severity Reaction Status Date / Time Penicillins Allergy Unknown Verified 04/27/21 23:10 Heart Score - HEART Score History: Slightly suspicious EKG: Normal Age: < 45 Risk factors: 1-2 risk factors Troponin: < normal limit HEART Score: 1 - EKG Read Time Time EKG Completed: 23:02 EKG Read Time: 23:04 ED Review of Systems ROS: Stated complaint: CHEST PAINS/HEADACHES/DIZZNESS Other details as noted in HPI Comment: All other systems reviewed and negative Constitutional: denies: fever Respiratory: denies: cough, shortness of breath Cardiovascular: chest pain, palpitations Gastrointestinal: denies: nausea, vomiting Musculoskeletal: other (Denies leg pain or swelling) Neurological: headache ED Past Medical Hx - Past Medical History Previous Medical History?: No Hx Hypertension: No Hx Heart Attack/AMI: No Hx Liver Disease: No Hx Renal Disease: No Hx Seizures: No Hx Dementia: No Hx HIV: No - Surgical History Past Surgical History?: No Hx Open Heart Surgery: No Hx Cholecystectomy: No Hx Appendectomy: No Hx Breast Surgery: No Additional Surgical History: ectopic preg - Social History Smoking Status: Never Smoker Substance Use Type: Alcohol - Medications Home Medications: Home Medications Medication Instructions Recorded Confirmed Last Taken Type Docusate Sodium [Colace] 100 mg PO BID PRN #60 capsule 04/27/20 Unknown Rx Ferrous Sulfate [Feosol 325 MG tab] 325 mg PO QDAY #60 tablet 04/27/20 Unknown Rx Ibuprofen [Motrin 800 MG tab] 800 mg PO Q8HR PRN #30 tablet 04/27/20 Unknown Rx oxyCODONE /ACETAMINOPHEN [Percocet 1 tab PO Q4HR #30 tab 04/27/20 Unknown Rx 5/325] Ondansetron [Zofran Odt] 4 mg PO Q8HR PRN #14 tab.rapdis 04/19/21 Unknown Rx amLODIPine [Norvasc] 5 mg PO DAILY #30 tab 04/19/21 Unknown Rx traMADoL [Ultram] 50 mg PO Q6HR PRN #14 tablet 04/19/21 Unknown Rx ED Physical Exam - General Limitations: No Limitations General appearance: alert, in no apparent distress, obese - Head Head exam: Present: atraumatic, normocephalic - Eye Eye exam: Present: normal appearance, EOMI - ENT ENT exam: Present: mucous membranes moist - Neck Neck exam: Present: normal inspection - Respiratory Respiratory exam: Present: normal lung sounds bilaterally. Absent: respiratory distress - Cardiovascular Cardiovascular Exam: Present: regular rate, normal rhythm - GI/Abdominal GI/Abdominal exam: Present: soft. Absent: distended, tenderness - Extremities Exam Extremities exam: Present: normal inspection. Absent: pedal edema, calf tenderness - Neurological Exam Neurological exam: Present: alert, oriented X3 - Psychiatric Psychiatric exam: Present: normal affect, normal mood - Skin Skin exam: Present: warm, dry, intact, normal color ED Course Vital Signs 04/27/21 04/28/21 23:00 01:35 Temperature 99.0 F 98.0 F Pulse Rate 101 H 81 Respiratory 18 18 Rate Blood Pressure 152/108 132/81 [Right] O2 Sat by Pulse 99 99 Oximetry ED Medical Decision Making - Lab Data Result diagrams: 04/27/21 23:37 04/27/21 23:37 - EKG Data -: EKG Interpreted by Me EKG shows normal: sinus rhythm, axis, intervals, QRS complexes, ST-T waves Rate: normal - EKG Data Interpretation: LVH - Radiology Data Radiology results: report reviewed, image reviewed - Medical Decision Making EKG shows no ST changes. Troponin negative x2. Patient believes chest pain is secondary to her anxiety which is due to increased stress that she has been under lately. Patient is feeling much better at this time. She is okay with discharge home. Outpatient follow-up advised, return precautions given. - Differential Diagnosis ACS, anxiety, pneumonia Critical care attestation.: If time is entered above; I have spent that time in minutes in the direct care of this critically ill patient, excluding procedure time. ED Disposition Clinical Impression: Acute chest pain Disposition: HOME / SELF CARE / HOMELESS Is pt being admited?: No Condition: Stable Instructions: Nonspecific Chest Pain, Adult, [id number], Chest Pain (ED) Referrals: PRIMARY CARE [Primary Care Provider] - 3-5 Days [facility] [Provider Group] - 3-5 Days Forms: Work/School Release Form(ED) Time of Disposition: 02:15
[2021-04-28 00:23] LABS: Blood Urea Nitrogen 13 mg/dL (7-17); Calcium 8.9 mg/dL (8.4-10.2); Hemolysis Index 6
[2021-04-28 00:28] LABS: BUN/Creatinine Ratio 22
[2021-04-28 00:34] LABS: Basophils % (Auto) 0.4 % (0.0-1.8); Eosinophils # (Auto) 0.3 K/mm3 (0.0-0.4); Eosinophils % (Auto) 3.2 % (0.0-4.3); Hematocrit 35.8 % (30.3-42.9); Hemoglobin 12.2 gm/dl (10.1-14.3); Lymphocytes # (Auto) 4.5 K/mm3 (1.2-5.4); Lymphocytes % (Auto) 52.5 % (13.4-35.0); Mean Corpuscular HGB Conc 34 % (30-34); Mean Corpuscular Volume 87 fl (79-97); Monocytes # (Auto) 0.6 K/mm3 (0.0-0.8); Monocytes % (Auto) 6.8 % (0.0-7.3); Platelet Count 258 K/mm3 (140-440); Red Cell Distribution Width 13.5 % (13.2-15.2)
--- NOTE | 2021-04-28 00:53 | XRay Report ---
CHEST 2 VIEWS INDICATION / CLINICAL INFORMATION: chest pain STUDY TIME: 28 COMPARISON: 04/19/2021 FINDINGS: SUPPORT DEVICES: None. HEART / MEDIASTINUM: No significant abnormality. LUNGS / PLEURA: No significant pulmonary or pleural abnormality. No pneumothorax. ADDITIONAL FINDINGS: No significant additional findings. Signer Name: Yossi Jimenez MD Signed: 04/28/2021 12:49 AM Workstation Name: [id number]
[2021-04-28 01:36] VITALS: BP 132/81
--- NOTE | 2021-05-02 14:26 | Electrocardiograph Report ---
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
== END 2021-04-28 02:41 | disposition home or self-care (01) ==
LOC: ED 22:56
DX: R07.9 Chest pain, unspecified (principal); Z88.0 Allergy status to penicillin
CPT/HCPCS: 36415; 71046; 80048; 84484; 84703; 85025; 93005; 99283; 99284

== ENCOUNTER 2021-11-26 13:32 | Emergency (ER) | payer OTHER ==
[2021-11-26] MEDS ORDERED: ONDANSETRON 4 MG/2 ML INJ IV ONE (13:52)
[2021-11-26] MEDS ORDERED: MORPHINE 4 MG/1 ML INJ IV ONE (13:52)
[2021-11-26] MEDS ORDERED: ACETAMINOPHEN 650 MG RECT SUPP PR ONE (13:52)
--- NOTE | 2021-11-26 13:59 | Emergency Department Report ---
ED General Adult HPI - General Chief complaint: Abdominal Pain Stated complaint: FEVER/N/V/D Time Seen by Provider: 11/26/21 13:42 Source: EMS Mode of arrival: Stretcher Limitations: No Limitations - History of Present Illness Initial comments: Patient presents with complaints of left upper abdominal/left lower chest pain x 3 days, sharp, radiating to L lower back and L shoulder, 8/10, worsened by cough, not relieved by anything. Endorses nausea, non bloody, non bilious vomiting. Last BM was 3 days ago and formed, but scant in the form of turds. End orses flatulence. Denies dysuria, frequency, urgency, vaginal bleeding, discharge, SOB, palpitations, diaphoresis. Had gastric sleeve surgery 4 weeks ago and also was hospitalized x 1 week after that. Severity scale (0 -10): 10 - Related Data Previous Rx's Medication Instructions Recorded Last Taken Type Docusate Sodium [Colace] 100 mg PO BID PRN #60 capsule 04/27/20 Unknown Rx Ferrous Sulfate [Feosol 325 MG tab] 325 mg PO QDAY #60 tablet 04/27/20 Unknown Rx Ibuprofen [Motrin 800 MG tab] 800 mg PO Q8HR PRN #30 tablet 04/27/20 Unknown Rx oxyCODONE /ACETAMINOPHEN [Percocet 1 tab PO Q4HR #30 tab 04/27/20 Unknown Rx 5/325] Ondansetron [Zofran Odt] 4 mg PO Q8HR PRN #14 tab.rapdis 04/19/21 Unknown Rx amLODIPine [Norvasc] 5 mg PO DAILY #30 tab 04/19/21 Unknown Rx traMADoL [Ultram] 50 mg PO Q6HR PRN #14 tablet 04/19/21 Unknown Rx Allergies Allergy/AdvReac Type Severity Reaction Status Date / Time Penicillins Allergy Unknown Verified 04/27/21 23:10 ED Review of Systems ROS: Stated complaint: FEVER/N/V/D Other details as noted in HPI Comment: All other systems reviewed and negative Constitutional: fever. denies: chills ED Past Medical Hx - Past Medical History Hx Hypertension: No Hx Heart Attack/AMI: No Hx Liver Disease: No Hx Renal Disease: No Hx Seizures: No Hx Dementia: No Hx HIV: No - Surgical History Hx Open Heart Surgery: No Hx Cholecystectomy: No Hx Appendectomy: No Hx Breast Surgery: No Additional Surgical History: ectopic preg - Social History Smoking Status: Never Smoker - Medications Home Medications: Home Medications Medication Instructions Recorded Confirmed Last Taken Type Docusate Sodium [Colace] 100 mg PO BID PRN #60 capsule 04/27/20 Unknown Rx Ferrous Sulfate [Feosol 325 MG tab] 325 mg PO QDAY #60 tablet 04/27/20 Unknown Rx Ibuprofen [Motrin 800 MG tab] 800 mg PO Q8HR PRN #30 tablet 04/27/20 Unknown Rx oxyCODONE /ACETAMINOPHEN [Percocet 1 tab PO Q4HR #30 tab 04/27/20 Unknown Rx 5/325] Ondansetron [Zofran Odt] 4 mg PO Q8HR PRN #14 tab.rapdis 04/19/21 Unknown Rx amLODIPine [Norvasc] 5 mg PO DAILY #30 tab 04/19/21 Unknown Rx traMADoL [Ultram] 50 mg PO Q6HR PRN #14 tablet 04/19/21 Unknown Rx ED Physical Exam - General Limitations: No Limitations General appearance: alert, in no apparent distress - Head Head exam: Present: atraumatic, normocephalic - Eye Eye exam: Present: PERRL, EOMI - ENT ENT exam: Present: mucous membranes moist, other (airway patent) - Neck Neck exam: Present: other (supple; no JVD) - Respiratory Respiratory exam: Present: other (good air entry, nml I:ER, CTAB, no use of MADAY) - Cardiovascular Cardiovascular Exam: Present: regular rate. Absent: rubs, gallop - GI/Abdominal GI/Abdominal exam: Present: other (soft; tender to palpation in LUQ, L flank and LLQ; no rebound tenderness; no involuntary guarding) - Extremities Exam Extremities exam: Present: other (no lower extremity edema; non tender calves; neg Brenda's sighn bilaterally) - Back Exam Back exam: Present: full ROM, CVA tenderness (L). Absent: CVA tenderness (R) - Neurological Exam Neurological exam: Present: alert, oriented X3, CN II-XII intact. Absent: motor sensory deficit - Skin Skin exam: Present: warm, normal color ED Course Vital Signs 11/26/21 11/26/21 11/26/21 13:38 13:49 13:54 Temperature 103.3 F H 103.2 F H Pulse Rate 134 H 137 H Respiratory 18 Rate Blood Pressure 149/84 Blood Pressure 149/84 [Left] O2 Sat by Pulse 100 99 Oximetry 11/26/21 11/26/21 11/26/21 15:56 16:07 16:16 Temperature Pulse Rate 118 H 119 H 116 H Respiratory 14 25 H 22 Rate Blood Pressure Blood Pressure 110/64 [Left] O2 Sat by Pulse 100 94 95 Oximetry 11/26/21 11/26/21 11/26/21 16:30 16:46 17:00 Temperature Pulse Rate 115 H 117 H 113 H Respiratory 23 25 H 21 Rate Blood Pressure 110/60 94/54 101/60 Blood Pressure [Left] O2 Sat by Pulse 94 96 96 Oximetry 11/26/21 11/26/21 11/26/21 17:16 17:30 17:32 Temperature 99.2 F Pulse Rate 114 H 109 H 107 H Respiratory 19 21 14 Rate Blood Pressure 97/50 110/68 Blood Pressure 110/68 [Left] O2 Sat by Pulse 95 97 Oximetry 11/26/21 11/26/21 11/26/21 17:46 18:00 18:16 Temperature Pulse Rate 109 H 111 H 107 H Respiratory 29 H 20 21 Rate Blood Pressure 93/57 96/58 88/55 Blood Pressure [Left] O2 Sat by Pulse 96 98 98 Oximetry 11/26/21 11/26/21 11/26/21 18:30 18:46 19:00 Temperature Pulse Rate 107 H 109 H 103 H Respiratory 18 25 H 21 Rate Blood Pressure 108/66 99/62 116/73 Blood Pressure [Left] O2 Sat by Pulse 98 97 98 Oximetry ED Medical Decision Making - Lab Data Result diagrams: 11/26/21 14:27 11/26/21 14:27 Laboratory Tests 11/26/21 11/26/21 11/26/21 14:27 14:27 14:27 WBC 13.0 H RBC 4.07 Hgb 11.1 Hct 33.9 MCV 83 MCH 27 L MCHC 33 RDW 13.9 Plt Count 252 Lymph % (Auto) 12.8 L [place] % (Auto) 9.3 H Eos % (Auto) 0.0 Baso % (Auto) 0.3 Lymph # (Auto) 1.7 [place] # (Auto) 1.2 H Eos # (Auto) 0.0 Baso # (Auto) 0.0 Seg Neutrophils % 77.6 H Seg Neutrophils # 10.1 H Sodium 137 Potassium 3.5 L Chloride 95.6 L Carbon Dioxide 23 Anion Gap 22 BUN 10 Creatinine 0.9 Estimated GFR > 60 BUN/Creatinine Ratio 11 Glucose 94 Lactic Acid 1.50 Calcium 9.1 Total Bilirubin 0.50 AST 18 ALT 17 Alkaline Phosphatase 89 Troponin T < 0.010 Total Protein 8.3 H Albumin 4.1 Albumin/Globulin Ratio 1.0 Lipase 31 HCG, Qual Urine HCG, Qual 11/26/21 11/26/21 14:27 14:56 WBC RBC Hgb Hct MCV MCH MCHC RDW Plt Count Lymph % (Auto) [place] % (Auto) Eos % (Auto) Baso % (Auto) Lymph # (Auto) [place] # (Auto) Eos # (Auto) Baso # (Auto) Seg Neutrophils % Seg Neutrophils # Sodium Potassium Chloride Carbon Dioxide Anion Gap BUN Creatinine Estimated GFR BUN/Creatinine Ratio Glucose Lactic Acid Calcium Total Bilirubin AST ALT Alkaline Phosphatase Troponin T Total Protein Albumin Albumin/Globulin Ratio Lipase HCG, Qual Negative Urine HCG, Qual Negative EKG: HR 126, SR, nml intervals, no significant ST changes in contiguous leads CXR: no acute cardiopulmonary process CTA chest: pending @ 21:00 CT abd pelvis: pending @ 21:00 - Medical Decision Making Diff dz: likely 2/2 pyelonephritis with sepsis. Need to r/o PE, secondary peritonitis, intra-abdominal abscess formation, SBO and other acute surgical abdomen. Received NS 1L bolus x 1, levaquin 750 mg IV x 1, morphine 4 mg IV x 1, zofran 4 mg IV x 1, acetaminophen 650 mg [place] x 1. Critical care attestation.: If time is entered above; I have spent that time in minutes in the direct care of this critically ill patient, excluding procedure time. ED Disposition Clinical Impression: SIRS (systemic inflammatory response syndrome), Left upper quadrant pain Disposition: 30 STILL A PATIENT Is pt being admited?: Yes Does the pt Need Aspirin: No Condition: Stable Instructions: Abdominal Pain (ED) Referrals: PRIMARY CARE,MD [Primary Care Provider] - 3-5 Days Time of Disposition: 21:00 (Patient care transferred to Dr. Aponte. Sign out was given by me to the oncoming ER doc. )
[2021-11-26 14:50] LABS: Basophils % (Auto) 0.3 % (0.0-1.8); Hematocrit 33.9 % (30.3-42.9); Hemoglobin 11.1 gm/dl (10.1-14.3); Lymphocytes # (Auto) 1.7 K/mm3 (1.2-5.4); Lymphocytes % (Auto) 12.8 % (13.4-35.0); Mean Corpuscular HGB Conc 33 % (30-34); Mean Corpuscular Volume 83 fl (79-97); Monocytes # (Auto) 1.2 K/mm3 (0.0-0.8); Monocytes % (Auto) 9.3 % (0.0-7.3); Platelet Count 252 K/mm3 (140-440); Red Blood Count 4.07 M/mm3 (3.65-5.03); Red Cell Distribution Width 13.9 % (13.2-15.2)
[2021-11-26 15:10] LABS: Alanine Aminotransferase 17 units/L (7-56); Albumin 4.1 g/dL (3.9-5); BUN/Creatinine Ratio 11; Blood Urea Nitrogen 10 mg/dL (7-17); Calcium 9.1 mg/dL (8.4-10.2); Hemolysis Index 2
[2021-11-26 15:42] LABS: HCG Qualitative,Urine Negative (Negative)
--- NOTE | 2021-11-26 15:53 | XRay Report ---
CHEST 1 VIEW 11/26/2021 3:23 PM INDICATION / CLINICAL INFORMATION: pleuritic chest pain. COMPARISON: 04/28/2021 FINDINGS: SUPPORT DEVICES: None. HEART / MEDIASTINUM: No significant abnormality. LUNGS / PLEURA: No significant pulmonary or pleural abnormality. No pneumothorax. ADDITIONAL FINDINGS: No significant additional findings. IMPRESSION: 1. No acute findings. Signer Name: Lionel Alexander MD Signed: 11/26/2021 3:48 PM Workstation Name: [id number]
[2021-11-26] MEDS ORDERED: SODIUM CHLORIDE 0.9% 1000 ML 1,000 ML IV ONE (16:07)
--- NOTE | 2021-11-26 21:14 | Cat Scan Report ---
CTA CHEST WITH CONTRAST INDICATION / CLINICAL INFORMATION: L chest pain; recent bariatric surgery TECHNIQUE: Axial CT images were obtained through the chest after injection of 100 cc Omnipaque 350 IV contrast. 3 plane MIP and/or 3D reconstructions were produced. All CT scans at this location are per formed using CT dose reduction for ALARA by means of automated exposure control. COMPARISON: CTA chest 04/19/2021 FINDINGS: PULMONARY ARTERIES: No pulmonary emboli. Evaluation of the segmental and subsegmental arteries in the left lower lobe is limited due to motion artifact THORACIC AORTA: No significant abnormality. HEART: No significant abnormality. CORONARY ARTERY CALCIFICATION: None. MEDIASTINUM / LUIS: No significant abnormality. PLEURA: No pleural effusion. No pneumothorax. LUNGS: No acute air space or interstitial disease. ADDITIONAL FINDINGS: None. LIVER: There is a hypodense lesion in the inferior left hepatic lobe measuring 3.1 x 3.6 cm which was not seen on prior exam in March 2021. GALLBLADDER: Cholelithiasis, uncomplicated. BILE DUCTS: No significant abnormality. PANCREAS: No significant abnormality. SPLEEN: No significant abnormality. ADRENALS: No significant abnormality. RIGHT KIDNEY / URETER: No significant abnormality. LEFT KIDNEY / URETER: No significant abnormality. STOMACH / SMALL BOWEL: Postoperative changes from recent gastric bypass surgery. There is a extralumi nal gas containing collection in the left upper quadrant measuring approximately 6.4 x 6.0 cm. COLON: No significant abnormality. APPENDIX: No significant abnormality. PERITONEUM: No free fluid. No free air. No fluid collection. LYMPH NODES: No significant adenopathy. AORTA / ARTERIES: No significant abnormality. IVC / VEINS: No significant abnormality. URINARY BLADDER: No significant abnormality. REPRODUCTIVE ORGANS: No significant abnormality. ADDITIONAL FINDINGS: Injection-related changes in the subcutaneous tissues of the abdomen. SKELETAL SYSTEM: No significant abnormality. IMPRESSION: 1. No pulmonary emboli identified. 2. Gas collection adjacent to the bariatric surgery concerning for possible gastric sleeve anastomoti c leak. Recommend surgical consultation and contrast swallow for confirmation. 3. Hypoattenuating lesion in the left hepatic lobe is new from prior exam is nonspecific. This could be further evaluated with a triple phase CT abdomen pelvis once the patient is stable. 4. Cholelithiasis without evidence of acute cholecystitis. Signer Name: Lionel Alexander MD Signed: 11/26/2021 9:09 PM Workstation Name: [id number]
[2021-11-26] MEDS ORDERED: fentaNYL 100 MCG/2 ML INJ IV ONE ×2 (21:59→23:47)
[2021-11-26] MEDS ORDERED: metroNIDAZOLE/NS 500 MG/100 ML 500 MG/100 ML BAG IV ONE (22:55)
[2021-11-27] MEDS ORDERED: fentaNYL 100 MCG/2 ML INJ IV ONE (03:59)
[2021-11-27] MEDS ORDERED: SODIUM CHLORIDE 0.9% 1000 ML 1,000 ML IV ONE (03:59)
--- NOTE | 2021-11-27 08:11 | Consultation ---
History of Present Illness Consult date: 11/27/21 Reason for consult: abdominal pain - History of present illness History of present illness: This is a 41-year-old patient who is about 4 weeks status post a gastric sleeve procedure. Patient notes that she has had some postoperative pain that was much milder and in nature for over a week. The pain got markedly worse 2 days ago. Patient presented to the emergency room for evaluation. She also notes that while at home her temperature went up to 100.5. While in the emergency room she was noted to the tachycardic on admission 234 with a temperature of 103.3 her blood pressure is 1 it was 138/84 respiratory rate 18 and room air saturation was 96%. CT scan of the abdomen and pelvis was showing some free air and fluid collection suggestive of anastomotic leak. Area of concern is contained to the left upper quadrant immediately adjacent to the anastomosis. CT angiogram of the chest is negative for any pulmonary embolus. The patient was scheduled for transfer to the hospital where the initial procedure was performed. Discussion with Dr. Culver was started and in agreement for transfer from the emergency room was received. However, ground transport to the [facility] was not available through the early hours of this morning. Surgical consultation was requested. By 3 in the morning the patient's vital signs have markedly improved with a heart rate of 75 temperature decreased to 98.5 blood pressure was 115/70 and the patient's room air saturated goetz remained good at 98% on room air. Respiratory rate somewhat increased to 24. Patient was closely observed through the morning and an ambulance became available for transfer at 9 AM. Medications and Allergies Allergies Allergy/AdvReac Type Severity Reaction Status Date / Time Penicillins Allergy Unknown Verified 04/27/21 23:10 Home Medications Medication Instructions Recorded Confirmed Last Taken Type Docusate Sodium [Colace] 100 mg PO BID PRN #60 capsule 04/27/20 Unknown Rx Ferrous Sulfate [Feosol 325 MG tab] 325 mg PO QDAY #60 tablet 04/27/20 Unknown Rx Ibuprofen [Motrin 800 MG tab] 800 mg PO Q8HR PRN #30 tablet 04/27/20 Unknown Rx oxyCODONE /ACETAMINOPHEN [Percocet 1 tab PO Q4HR #30 tab 04/27/20 Unknown Rx 5/325] Ondansetron [Zofran Odt] 4 mg PO Q8HR PRN #14 tab.rapdis 04/19/21 Unknown Rx amLODIPine [Norvasc] 5 mg PO DAILY #30 tab 04/19/21 Unknown Rx traMADoL [Ultram] 50 mg PO Q6HR PRN #14 tablet 04/19/21 Unknown Rx Active Meds: Active Medications Sodium Chloride (Nacl 0.9% 1000 Ml) 1,000 mls @ 125 mls/hr IV ONCE ONE Stop: 11/27/21 11:58 Exam Vital Signs Temp Pulse Resp BP Pulse Ox 103.3 F H 134 H 18 149/84 96 11/26/21 13:38 11/26/21 13:38 11/26/21 13:38 11/26/21 13:38 11/26/21 13:38 - General physical appearance Positive: well developed, moderate distress - Neck Positive: no masses, no bruits, trachea midline - Respiratory Positive: normal expansion - Cardiovascular Rhythm: regular - Extremities Extremities: no ischemia, No edema - Abdomen Abdomen: Present: soft, tender, guarding. Absent: distended, masses Hernia: none - Integumentary no rash - Neurologic Neurologic: alert and oriented to time, place and person, motor strength and sensation are grossly intact, CN II-XII intact Results - Labs 11/26/21 14:27 11/26/21 14:27 Abnormal lab results 11/26/21 11/26/21 Range/Units 14:27 14:27 WBC 13.0 H (4.5-11.0) K/mm3 MCH 27 L (28-32) pg Lymph % (Auto) 12.8 L (13.4-35.0) % [place] % (Auto) 9.3 H (0.0-7.3) % [place] # (Auto) 1.2 H (0.0-0.8) K/mm3 Seg Neutrophils % 77.6 H (40.0-70.0) % Seg Neutrophils # 10.1 H (1.8-7.7) K/mm3 Potassium 3.5 L (3.6-5.0) mmol/L Chloride 95.6 L (98-107) mmol/L Total Protein 8.3 H (6.3-8.2) g/dL Diabetes panel 11/26/21 Range/Units 14:27 Sodium 137 (137-145) mmol/L Potassium 3.5 L (3.6-5.0) mmol/L Chloride 95.6 L (98-107) mmol/L Carbon Dioxide 23 (22-30) mmol/L BUN 10 (7-17) mg/dL Creatinine 0.9 (0.6-1.2) mg/dL Glucose 94 (65-100) mg/dL Calcium 9.1 (8.4-10.2) mg/dL AST 18 (5-40) units/L ALT 17 (7-56) units/L Alkaline Phosphatase 89 (35-129) units/L Total Protein 8.3 H (6.3-8.2) g/dL Albumin 4.1 (3.9-5) g/dL Calcium panel 11/26/21 Range/Units 14:27 Calcium 9.1 (8.4-10.2) mg/dL Albumin 4.1 (3.9-5) g/dL Pituitary panel 11/26/21 Range/Units 14:27 Sodium 137 (137-145) mmol/L Potassium 3.5 L (3.6-5.0) mmol/L Chloride 95.6 L (98-107) mmol/L Carbon Dioxide 23 (22-30) mmol/L BUN 10 (7-17) mg/dL Creatinine 0.9 (0.6-1.2) mg/dL Glucose 94 (65-100) mg/dL Calcium 9.1 (8.4-10.2) mg/dL Adrenal panel 11/26/21 Range/Units 14:27 Sodium 137 (137-145) mmol/L Potassium 3.5 L (3.6-5.0) mmol/L Chloride 95.6 L (98-107) mmol/L Carbon Dioxide 23 (22-30) mmol/L BUN 10 (7-17) mg/dL Creatinine 0.9 (0.6-1.2) mg/dL Glucose 94 (65-100) mg/dL Calcium 9.1 (8.4-10.2) mg/dL Total Bilirubin 0.50 (0.1-1.2) mg/dL AST 18 (5-40) units/L ALT 17 (7-56) units/L Alkaline Phosphatase 89 (35-129) units/L Total Protein 8.3 H (6.3-8.2) g/dL Albumin 4.1 (3.9-5) g/dL Assessment and Plan The patient was scheduled for transfer to the hospital where the initial procedure was performed. Discussion with Dr. Culver was started and in agreement for transfer from the emergency room was received. However, ground transport to the [facility] was not available through the early hours of this morning. Surgical consultation was requested. By 3 in the morning the patient's vital signs have markedly improved with a heart rate of 75 temperature decreased to 98.5 blood pressure was 115/70 and the patient's room air saturated goetz remained good at 98% on room air. Respiratory rate somewhat increased to 24. Patient was closely observed through the morning and an ambulance became available for transfer at 9 AM. Patient expressed that she was not nervous about having to go through surgery a gain. She was otherwise stable. She had continue abdominal pain but noted that IV fentanyl helped quite a bit with that. The case was also discussed with Dr. Smith the bariatric surgeon at [facility].
[2021-11-27] MEDS ORDERED: HYDROmorphone 1 MG/1 ML INJ IV ONE (09:06)
[2021-11-27 12:01] VITALS: BP 122/69
--- NOTE | 2021-11-28 13:31 | Electrocardiograph Report ---
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
== END 2021-11-27 12:01 | disposition still patient (30) ==
LOC: ED 13:32
DX: R10.13 Epigastric pain (principal); R65.10 Systemic inflammatory response syndrome (SIRS) of non-infectious origin without acute organ dysfunction; Z88.0 Allergy status to penicillin
CPT/HCPCS: 36415; 71045; 71275; 74177; 80053; 81025; 82140; 83690; 84484; 84703; 85025; 87040; 93005; 96361; 96365; 96367; 96375; 96376; 99285; J1170; J1956; J2270; J2405; J3010; J7030; J7517; Q9967